=== PATIENT | female | born 1985 | race Two or more races ===

== ENCOUNTER 2017-04-22 17:08 | Emergency (ER) | payer OTHER ==
[~2017-04-22] VITALS: Ht 144.8 cm; Wt 68.0 kg
[2017-04-22 18:38] VITALS: BP 148/93
[2017-04-22] MEDS ORDERED: cefTRIAXone SOD 1,000 MG VL IM ONE (19:15)
[2017-04-22] MEDS ORDERED: DEXAMETHASONE SOD PHOS 10MG/1ML VIAL INJ IM ONE (19:15)
== END 2017-04-22 19:58 | disposition home or self-care (01) ==
LOC: ER 17:14
DX: S00.86XA Insect bite (nonvenomous) of other part of head, initial encounter (principal); J45.909 Unspecified asthma, uncomplicated; Z88.6 Allergy status to analgesic agent; Z88.8 Allergy status to other drugs, medicaments and biological substances; W57.XXXA Bitten or stung by nonvenomous insect and other nonvenomous arthropods, initial encounter; Y93.89 Activity, other specified; Y99.8 Other external cause status; Y92.89 Other specified places as the place of occurrence of the external cause
CPT/HCPCS: 96372; 99284; J0696; J1100

== ENCOUNTER 2017-10-20 18:40 | Emergency (ER) | payer OTHER ==
[~2017-10-20] VITALS: Ht 144.8 cm; Wt 71.2 kg
[2017-10-20 20:09] VITALS: BP 130/81
== END 2017-10-20 20:46 | disposition home or self-care (01) ==
LOC: ER 18:44
DX: S40.861A Insect bite (nonvenomous) of right upper arm, initial encounter (principal); J45.909 Unspecified asthma, uncomplicated; Z88.5 Allergy status to narcotic agent; Z88.8 Allergy status to other drugs, medicaments and biological substances; W57.XXXA Bitten or stung by nonvenomous insect and other nonvenomous arthropods, initial encounter; Y93.89 Activity, other specified; Y99.8 Other external cause status; Y92.89 Other specified places as the place of occurrence of the external cause

== ENCOUNTER 2019-03-13 18:32 | Emergency (ER) | payer OTHER ==
[~2019-03-13] VITALS: Ht 144.8 cm; Wt 72.6 kg
[2019-03-13 22:55] VITALS: BP 124/93
== END 2019-03-13 23:11 | disposition home or self-care (01) ==
LOC: ER 18:43
DX: H10.33 Unspecified acute conjunctivitis, bilateral (principal)

== ENCOUNTER 2019-12-14 16:18 | Emergency (ER) | payer OTHER ==
[~2019-12-14] VITALS: Ht 144.8 cm; Wt 70.3 kg
[2019-12-14 18:37] VITALS: BP 116/69
== END 2019-12-14 18:46 | disposition home or self-care (01) ==
LOC: ER 16:18
DX: J06.9 Acute upper respiratory infection, unspecified (principal); J02.9 Acute pharyngitis, unspecified; J45.909 Unspecified asthma, uncomplicated; Z88.6 Allergy status to analgesic agent
CPT/HCPCS: 71045

== ENCOUNTER 2021-01-30 15:07 | Emergency (ER) | payer OTHER ==
[~2021-01-30] VITALS: Ht 144.8 cm; Wt 74.8 kg
[2021-01-30 16:01] VITALS: BP 124/79
[2021-01-30] MEDS ORDERED: TOBR0.3S OP (16:36)
[2021-01-30] MEDS ORDERED: IBUP800T27 PO (16:36)
[2021-01-30] MEDS ORDERED: CLIN300C8 PO (16:36)
== END 2021-01-30 16:46 | disposition home or self-care (01) ==
LOC: ER 15:07
DX: H10.9 Unspecified conjunctivitis (principal); K02.9 Dental caries, unspecified; J45.909 Unspecified asthma, uncomplicated; Z79.1 Long term (current) use of non-steroidal anti-inflammatories (NSAID); Z79.2 Long term (current) use of antibiotics; Z88.8 Allergy status to other drugs, medicaments and biological substances

== ENCOUNTER 2021-02-16 13:08 | Emergency (ER) | payer OTHER ==
[~2021-02-16] VITALS: Ht 144.8 cm; Wt 68.0 kg
[~2021-02-16 13:08] MED LIST: CLIN300C8 PO; IBUP800T27 PO; TOBR0.3S OP
[2021-02-16 18:00] VITALS: BP 124/88
== END 2021-02-16 18:26 | disposition home or self-care (01) ==
LOC: ER 13:08
DX: S39.012A Strain of muscle, fascia and tendon of lower back, initial encounter (principal); Q76.49 Other congenital malformations of spine, not associated with scoliosis; J45.909 Unspecified asthma, uncomplicated; Z79.1 Long term (current) use of non-steroidal anti-inflammatories (NSAID); Z79.2 Long term (current) use of antibiotics; Z79.899 Other long term (current) drug therapy; V49.9XXA Car occupant (driver) (passenger) injured in unspecified traffic accident, initial encounter; Y93.89 Activity, other specified; Y92.89 Other specified places as the place of occurrence of the external cause; Y99.8 Other external cause status
CPT/HCPCS: 72100

== ENCOUNTER 2021-06-05 06:33 | Emergency (ER) | payer OTHER ==
[~2021-06-05] VITALS: Ht 144.8 cm; Wt 70.3 kg
[2021-06-05 06:34] VITALS: BP 137/77
[2021-06-05] MEDS ORDERED: IBUPROFEN 800 MG TAB PO ONE (07:15)
[2021-06-05] MEDS ORDERED: CLIN300C8 PO (07:21)
[2021-06-05] MEDS ORDERED: IBUP800T27 PO (07:21)
== END 2021-06-05 07:29 | disposition home or self-care (01) ==
LOC: ER 06:33
DX: K02.9 Dental caries, unspecified (principal); J45.909 Unspecified asthma, uncomplicated; I10 Essential (primary) hypertension

== ENCOUNTER → 2021-07-29 | Emergency (ER) | payer OTHER ==
[~2021-07-29] VITALS: Ht 144.8 cm; Wt 70.3 kg
[~2021-07-29] MED LIST changes: +ALBUTEROL SULF 2.5 MG/0.5ML(0.5%) NEB SOLN NEB ONE; +IPRATROPIUM BROM 0.5 MG/2.5ML INH SOL NEB ONE
[2021-07-29 01:04] VITALS: BP 133/79
== END | disposition left against medical advice (07) ==
LOC: ER 01:04
DX: J45.909 Unspecified asthma, uncomplicated (principal); R06.02 Shortness of breath; Z53.21 Procedure and treatment not carried out due to patient leaving prior to being seen by health care provider
CPT/HCPCS: 94640; J7644

== ENCOUNTER → 2021-09-22 | Emergency (ER) | payer OTHER ==
[~2021-09-22] VITALS: Ht 162.6 cm; Wt 64.0 kg
[~2021-09-22] MED LIST changes: -ALBUTEROL SULF 2.5 MG/0.5ML(0.5%) NEB SOLN NEB ONE; -IPRATROPIUM BROM 0.5 MG/2.5ML INH SOL NEB ONE; +POTASSIUM CHL 20 Meq TABLET PO ONE
[2021-09-22 18:03] VITALS: BP 147/97
[2021-09-22 18:47] LABS: Basophils # (auto) 0.1 10 ^3/uL (0-0.2); Basophils % (auto) 0.5 % (0.0-2.0); Eosinophils # (auto) 0 10 ^3/uL (0-0.8); Eosinophils % (auto) 0.2 % (0.0-7.0); Hematocrit 39.9 % (36.0-46.0); Hemoglobin 13.2 g/dL (12.2-16.2); Mean Corpuscular Hemoglobin 26.7 pg (28.0-32.0); Mean Corpuscular Volume 80.9 fL (80.0-100.0); Monocytes # (auto) 0.7 10 ^3/uL (0-1.3); Monocytes % (auto) 5.1 % (0.0-12.0); Neutrophils % (auto) 78.2 % (37.0-80.0); Red Blood Cells 4.93 10^6/uL (4.0-5.20); Red Cell Distribution Width 14.4 % (11.8-14.3); White Blood Cell 12.8 10^3/uL (4.4-10.8)
[2021-09-22 19:00] LABS: Albumin 3.6 g/dL (3.4-5.0); Calcium 9.2 mg/dL (8.5-10.1)
[2021-09-22 19:04] LABS: BUN/Creatinine Ratio 11.8; Bilirubin, Total 0.5 mg/dL (0.2-1.0); Total Protein 8.1 g/dL (6.4-8.2)
[2021-09-22 19:12] LABS: Potassium 2.8 mmol/L (3.5-5.1)
== END | disposition home or self-care (01) ==
LOC: EDUNIT# 17:51 → ER 18:03 → EDBD 18:03
DX: S20.219A Contusion of unspecified front wall of thorax, initial encounter (principal); S30.1XXA Contusion of abdominal wall, initial encounter; I10 Essential (primary) hypertension; J45.909 Unspecified asthma, uncomplicated; Z79.1 Long term (current) use of non-steroidal anti-inflammatories (NSAID); Z79.2 Long term (current) use of antibiotics; Z79.899 Other long term (current) drug therapy; Z88.8 Allergy status to other drugs, medicaments and biological substances; Y04.2XXA Assault by strike against or bumped into by another person, initial encounter; Y93.89 Activity, other specified; Y92.89 Other specified places as the place of occurrence of the external cause; Y99.8 Other external cause status
CPT/HCPCS: 36415; 80053; 85025

== ENCOUNTER 2024-08-04 02:34 | Emergency (ER) | payer OTHER ==
[~2024-08-04] VITALS: Ht 144.8 cm; Wt 83.1 kg
[~2024-08-04 02:34] MED LIST changes: +CLIN1CAP70 PO; -CLIN300C8 PO; +IBUP-1456 PO; -IBUP800T27 PO; -POTASSIUM CHL 20 Meq TABLET PO ONE
--- NOTE | 2024-08-04 02:47 | ED.PDOC ---
Jeffrey. trauma (HPI) HPI Comments Pt presents to the ER due to head pain s/p fall. Per pt she was cooking breakfast yesterday 08/03/24 turned around and did not want to step on her cat, pt states she fell face foward on tile floor. + LOC, - blood thinners. Pt noted to have laceartion to forehead, bleeding controlled. Pt states she attempted to super glue laceration pt states she would like to get laceration evaluated. Pt reports dizziness, blurred vision, and headpain. Denies numbness, weakness, chest pain, shortness breath, difficulty breathing, nausea, vomiting, abdominal pain Chief Complaint: Head Injury Time Seen by MD: 02:46 Primary Care Provider: UNKNOWN Reviewed notes: Nurses Notes, Medications, Allergies Allergies: Coded Allergies: Acetaminophen (Verified Allergy, Intermediate, PT VOMITS, 09/22/21) Hydrocodone (Verified Allergy, Intermediate, PT VOMITS, 09/22/21) Home Meds Active Scripts Ibuprofen (Ibuprofen) 800 Mg Tab, 800 MG PO Q8HP PRN, #24 TAB Prov:INGRID VILLALOBOS 06/05/21 Clindamycin Hcl (Clindamycin Hcl) 300 Mg Cap, 300 MG PO QID for 7 Days, #28 CAP Prov:INGRID VILLALOBOS 06/05/21 Ibuprofen (Ibuprofen) 800 Mg Tab, 800 MG PO Q8HP PRN for 8 Days, #24 TAB Prov:INGRID VILLALOBOS 01/30/21 Clindamycin Hcl (Clindamycin Hcl) 300 Mg Cap, 300 MG PO QID for 8 Days, #32 CAP Prov:INGRID VILLALOBOS 01/30/21 Tobramycin Sulfate (TOBREX) 0.3 % Magdalena, 0.3 % OP Q4HR for 7 Days, #7 ML Prov:INGRID VILLALOBOS 01/30/21 Information Source: Patient Past Medical History PAST MEDICAL HISTORY: Asthma, HTN 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 History Family History Family History: Family hx of Cancer Social History Smoker: Non-Smoker Alcohol: Occasionally Drugs: Marijuana Lives In: Home Constitutional: denies: chills, diaphoresis, fatigue, fever, malaise, sweats, weakness, others EENTM: reports: blurred vision; denies: double vision, ear bleeding, ear discharge, ear drainage, ear pain, ear ringing, eye pain, eye redness, hearing loss, mouth pain, mouth swelling, nasal discharge, nose bleeding, nose congestion, nose pain, photophobia, tearing, throat pain, throat swelling, voice changes, others Respiratory: denies: cough, hemoptysis, orthopnea, SOB at rest, shortness of breath, SOB with excertion, stridor, wheezing, others Cardiovascular: denies: chest pain, dizzy spells, diaphoresis, Dyspnea on e xertion, edema, irregular heart beat, left arm pain, lightheadedness, palpitations, PND, syncope, others Gastrointestinal: denies: abdomen distended, abdominal pain, blood streaked bowels, constipated, diarrhea, dysphagia, difficulty swallowing, hematemesis, melena, nausea, poor appetite, poor fluid intake, rectal bleeding, rectal pain, vomiting, others Neurological: reports: headache; denies: dizziness, fainting, left sided numbness, left sided weakness, numbness, paresthesia, pre-existing deficit, right sided numbness, right sided weakness, seizure, speech problems, tingling, tremors, weakness, others Musculoskeletal: denies: back pain, gout, joint pain, joint swelling, muscle pain, muscle stiffness, neck pain, others Integumetry: denies: bruises, change in color, change in hair/nails, dryness, laceration, lesions, lumps, rash, wounds, others Allergic/Immunocompromised: denies: Difficulty Healing, Frequent Infections, Hives, Itching, others Hematologic/Lymphatic: denies: anemia, blood clots, easy bleeding, easy bruising, swollen glands, others Endocrine: denies: excessive hunger, excessive sweating, excessive thirst, excessive urination, flushing, intolerance to cold, intolerance to heat, unexplained weight gain, unexplained weight loss, others Psychiatric: denies: anxiety, bipolar disorder, depression, hopeless, panic disorder, schizophrenia, sleepless, suicidal, others Physical Exam General Appearance: No Apparent Distress, Normal HEENT: Normal ENT Inspection, Pharynx Normal, TMs Normal Neck: Full Range of Motion, Normal Respiratory: Chest Non-Tender, Lungs Clear, No Respiratory Distress, Normal Breath Sounds Cardiovascular: No Edema, No JVD, No Murmur, No Gallop, Normal Peripheral Pulses, Regular Rate/Rhythm Breast Exam: Deferred Gastrointestinal: No Organomegaly, Non Tender, No Pulsatile Mass, Normal Bowel Sounds, Soft Genitalia: Deferred Pelvic: Deferred Rectal: Deferred Extremities: Normal capillary refill, Normal inspection, Normal range of motion, Non-tender, No pedal edema Musculoskeletal : Apperance: Normal Neurologic: Alert, document control supervisor II-XII nml as Tested, No Motor Deficits, Normal Affect, Normal Mood, No Sensory Deficits Cerebellar Function: Normal Reflexes: Normal Skin: Dry, Lacerations (2 cm SUPERFICIAL laceration to middle of forehead bleeding controlled ), Normal Color, Warm Lymphatic: No Adenopathy Was a procedure done? Was a procedure done?: No Differential Diagnosis Multiple Trauma: Closed Head Injury, Fractures, Spine Injury Neck Injury: Cervical Muscle Spasm, Cervical Sprain, Cervical Strain, Cervical Fracture X-Ray, Labs, Meds, VS Vital Signs Date Time Temp Pulse Resp B/P (MAP) Pulse Ox O2 Delivery O2 Flow Rate FiO2 08/04/24 02:40 97.4 103 16 122/91 (101) 99 97.4 X-Ray, Labs, Meds, VS Comment CT BRAIN SHOWS NO ACUTE BLEED OR CHRONIC CONCERNS. PATIENT CALLED X3 WITH NO ANSWER TO DISCUSS HER CT RESULTS. PATIENT ELOPED Time of 1ST Reevaluation: 02:50 Reevaluation 1ST: Unchanged Patient Education/Counseling: Diagnosis, Treatment, Prognosis, Need For Follow Up Family Education/Counseling: No Family Present Departure 1 Departure Time of Disposition: 04:53 Impression: Primary Impression: Head trauma Qualified Codes: S09.90XA - Unspecified injury of head, initial encounter Additional Impression: Laceration of forehead Qualified Codes: S01.81XA - Laceration without foreign body of other part of head, initial encounter Disposition: 01 HOME / SELF CARE / HOMELESS Condition: Stable Discharged With: Self Critical Care Note Critical Care Time?: No Stability Stability form required: KIMBERLY Pappas August 04, 2024 02:47
--- NOTE | 2024-08-04 04:21 | DVH ---
EXAM: CT HEAD WITHOUT CONTRAST, CT CERVICAL WITHOUT CONTRAST INDICATION: STATUS POST HEAD INJURY POSITIVE LOC BLURRY VISION TECHNIQUE: CT of the head and cervical spine without intravenous contrast. Radiation Dose Information: CT Dose: Dose-length product is 918.6+ 557.7 mGy*cm The dose indicators for CT are the volume Computed Tomography (CT) Dose Index (CTDIvol) and the Dose Length Product (DLP), and are measured in units of mGy and mGy-cm, respectively. These indicators are not patient dose, but values generated from the CT scanner acquisition factors. The report includes radiation exposure data for exposures received during this examination. COMPARISON: None FINDINGS: There is no evidence of acute intracranial hemorrhage, extra-axial collection, mass effect, midline s hift, herniation or hydrocephalus. The ventricles, sulci and cisterns are age appropriate. The tierney-white differentiation is intact. The visualized paranasal sinuses and mastoid air cells are clear. The surrounding soft tissues and osseous structures are unremarkable. Cervical spine vertebral body height and alignment is maintained. Prevertebral soft tissues appear u nremarkable. IMPRESSION: 1. No acute intracranial abnormality. 2. No Acute cervical spine abnormality.
[2024-08-04 07:50] VITALS: BP 113/82; PULSE 74; RESP 13; TEMP 98.4; O2SAT 99
== END 2024-08-04 08:07 | disposition left against medical advice (07) ==
LOC: ER 02:34
DX: S01.81XA Laceration without foreign body of other part of head, initial encounter (principal); S09.90XA Unspecified injury of head, initial encounter; J45.909 Unspecified asthma, uncomplicated; I10 Essential (primary) hypertension; F12.90 Cannabis use, unspecified, uncomplicated; H53.8 Other visual disturbances; Z98.890 Other specified postprocedural states; Z79.899 Other long term (current) drug therapy; Z88.5 Allergy status to narcotic agent; W18.39XA Other fall on same level, initial encounter; Y93.G3 Activity, cooking and baking; Y92.89 Other specified places as the place of occurrence of the external cause; Y99.8 Other external cause status
CPT/HCPCS: 70450; 72125